=== PATIENT | male | born 1990 | race Two or more races ===

== ENCOUNTER 2018-08-15 17:10 | Inpatient (IN) | payer SELFPAY ==
[~2018-08-15] VITALS: Ht 170.2 cm; Wt 53.6 kg
--- NOTE | 2018-08-15 | NUR ---
PATIENT ARRIVED TO ICU ROOM 106 FROM ED. #2 BAG OF ACETYLCYSTEINE INFUSING VIA WHEELCHAIR. DR. MARES AT BEDSIDE. PATIENT ALERT AND ANSWERS QUESTIONS APPROPRIATELY, DENIES NAUSEA, VOMITING, OR PAIN AT THIS TIME. WILL CONTINUE TO MONITOR.
--- NOTE | 2018-08-15 18:04 | PHYS DOC ---
Adult General Chief Complaint Chief Complaint: SUICDAL IDEATION HPI HPI Patient is a 28 year old AA male who presents to the emergency room with complaints of nausea, vomiting, lower abdominal pain after taking 20 extra strength Tylenol at approximately 2100 last night. Patient states he overdosed on Tylenol in an attempt to cause self harm. Patient states he was feeling suicidal yesterday because of problems with his girlfriend. Patient states his girlfriend planned on kicking him out of their home. Patient states he attempted to harm himself because of the fear of being homeless. Patient states he does not have a job at this time and has no place to go. He denies any homicidal ideations. He reports that he has vomited 6 times today, he denies the presence of any pill fragments in the vomit. He denies any hematemesis, diarrhea, fever, shortness of breath, or wheezing. He reports that [facility] were called to the home last night after he told his girlfriend that he overdosed, but an ambulance was not called because he lied to police and denied taking an overdose to them. (VENTURA HALL APRN) Review of Systems Review of Systems Constitutional: Denies fever or chills [] Eyes: Denies change in visual acuity, redness, or eye pain [] HENT: Denies nasal congestion or sore throat [] Respiratory: Denies cough or shortness of breath [] Cardiovascular: No additional information not addressed in HPI [] GI: See HPI : Denies dysuria or hematuria [] Musculoskeletal: Denies back pain or joint pain [] Integument: Denies rash or skin lesions [] Neurologic: Denies headache, focal weakness or sensory changes [] Psychiatric: Denies homicidal ideations, reports suicidal ideations and attempt , see HPI Complete systems were reviewed and found to be within normal limits, except as documented in this note. (VENTURA HALL APRN) Current Medications Current Medications Current Medications Medications (Trade) Dose Ordered Sig/Sarah Start Time Stop Time Status Last Admin Dose Admin Ondansetron HCl (Zofran) 4 mg 1X ONCE 08/15/18 19:30 08/15/18 19:32 DC 08/15/18 20:43 4 MG (RADHA RODRIGUEZ DO) Allergies Allergies Allergies Coded Allergies Type Severity Reaction Last Updated Verified banana Allergy Severe SWELLING 08/15/18 Yes (RADHA RODRIGUEZ DO) Physical Exam Physical Exam Constitutional: Well developed, well nourished, no acute distress, non-toxic appearance. [] HENT: Normocephalic, atraumatic, bilateral external ears normal, oropharynx moist, no oral exudates, nose normal. [] Eyes: PERRLA, conjunctiva normal, no discharge. [] Neck: Normal range of motion, no stridor. [] Cardiovascular:Heart rate regular rhythm, no murmur [] Lungs & Thorax: Bilateral breath sounds clear to auscultation [] Abdomen: Bowel sounds normal, soft, no tenderness, no masses, no pulsatile masses. [] Skin: Warm, dry, no erythema, no rash. [] Extremities: No cyanosis, no clubbing, ROM intact, no edema. [] Neurologic: Alert and oriented X 3, normal motor function, normal sensory function, no focal deficits noted. [] Psychologic: Affect depressed, judgement normal, mood depressed, poor eye contact. [] (VENTURA HALL APRN) Current Patient Data Vital Signs Vital Signs Date Time Temp Pulse Resp B/P (MAP) Pulse Ox O2 Delivery O2 Flow Rate FiO2 08/15/18 18:55 16 108/54 (72) 99 Room Air 08/15/18 17:30 97.8 65 97.8 (RADHA RODRIGUEZ DO) Lab Values Laboratory Tests Test 08/15/18 18:40 08/15/18 19:25 08/15/18 19:29 White Blood Count 8.0 x10^3/uL (4.0-11.0) Red Blood Count 5.00 x10^6/uL (4.30-5.70) Hemoglobin 15.0 g/dL (13.0-17.5) Hematocrit 44.6 % (39.0-53.0) Mean Corpuscular Volume 89 fL (79-100) Mean Corpuscular Hemoglobin 30 pg (25-35) Mean Corpuscular Hemoglobin Concent 34 g/dL (31-37) Red Cell Distribution Width 13.1 % (11.5-14.5) Platelet Count 242 x10^3/uL (140-400) Neutrophils (%) (Auto) 84 % (31-73) H Lymphocytes (%) (Auto) 12 % (24-48) L Monocytes (%) (Auto) 3 % (0-9) Eosinophils (%) (Auto) 0 % (0-3) Basophils (%) (Auto) 1 % (0-3) Neutrophils # (Auto) 6.7 x10^3uL (1.8-7.7) Lymphocytes # (Auto) 1.0 x10^3/uL (1.0-4.8) Monocytes # (Auto) 0.3 x10^3/uL (0.0-1.1) Eosinophils # (Auto) 0.0 x10^3/uL (0.0-0.7) Basophils # (Auto) 0.0 x10^3/uL (0.0-0.2) Sodium Level 142 mmol/L (136-145) Potassium Level 4.2 mmol/L (3.5-5.1) Chloride Level 105 mmol/L (98-107) Carbon Dioxide Level 28 mmol/L (21-32) Anion Gap 9 (6-14) Blood Urea Nitrogen 16 mg/dL (8-26) Creatinine 1.1 mg/dL (0.7-1.3) Estimated GFR (Cockcroft-Gault) 78.6 Glucose Level 104 mg/dL (70-99) H Calcium Level 9.4 mg/dL (8.5-10.1) Total Bilirubin 0.8 mg/dL (0.2-1.0) Direct Bilirubin 0.2 mg/dL (0.0-0.2) Aspartate Amino Transferase (AST) 12 U/L (15-37) L Alanine Aminotransferase (ALT) 15 U/L (16-63) L Alkaline Phosphatase 44 U/L (46-116) L Total Protein 8.1 g/dL (6.4-8.2) Albumin 4.5 g/dL (3.4-5.0) Salicylates Level < 2.8 mg/dL (2.8-20.0) L Salicylate Last Dose Date Salicylate Last Dose Time Acetaminophen Level 13.8 mcg/ml (10-30) Acetaminophen Last Dose Date Acetaminophen Last Dose Time Ethyl Alcohol Level < 10 mg/dL (0-10) Prothrombin Time 14.7 SEC (11.7-14.0) H Prothrombin Time INR 1.2 (0.8-1.1) H PTT 26 SEC (24-38) Laboratory Tests 08/15/18 18:40 Laboratory Tests 08/15/18 19:25 (RADHA RODRIGUEZ DO) Lab Values Laboratory Tests Test 08/15/18 18:40 08/15/18 19:25 08/15/18 19:29 White Blood Count 8.0 x10^3/uL (4.0-11.0) Red Blood Count 5.00 x10^6/uL (4.30-5.70) Hemoglobin 15.0 g/dL (13.0-17.5) Hematocrit 44.6 % (39.0-53.0) Mean Corpuscular Volume 89 fL (79-100) Mean Corpuscular Hemoglobin 30 pg (25-35) Mean Corpuscular Hemoglobin Concent 34 g/dL (31-37) Red Cell Distribution Width 13.1 % (11.5-14.5) Platelet Count 242 x10^3/uL (140-400) Neutrophils (%) (Auto) 84 % (31-73) H Lymphocytes (%) (Auto) 12 % (24-48) L Monocytes (%) (Auto) 3 % (0-9) Eosinophils (%) (Auto) 0 % (0-3) Basophils (%) (Auto) 1 % (0-3) Neutrophils # (Auto) 6.7 x10^3uL (1.8-7.7) Lymphocytes # (Auto) 1.0 x10^3/uL (1.0-4.8) Monocytes # (Auto) 0.3 x10^3/uL (0.0-1.1) Eosinophils # (Auto) 0.0 x10^3/uL (0.0-0.7) Basophils # (Auto) 0.0 x10^3/uL (0.0-0.2) Sodium Level 142 mmol/L (136-145) Potassium Level 4.2 mmol/L (3.5-5.1) Chloride Level 105 mmol/L (98-107) Carbon Dioxide Level 28 mmol/L (21-32) Anion Gap 9 (6-14) Blood Urea Nitrogen 16 mg/dL (8-26) Creatinine 1.1 mg/dL (0.7-1.3) Estimated GFR (Cockcroft-Gault) 78.6 Glucose Level 104 mg/dL (70-99) H Calcium Level 9.4 mg/dL (8.5-10.1) Total Bilirubin 0.8 mg/dL (0.2-1.0) Direct Bilirubin 0.2 mg/dL (0.0-0.2) Aspartate Amino Transferase (AST) 12 U/L (15-37) L Alanine Aminotransferase (ALT) 15 U/L (16-63) L Alkaline Phosphatase 44 U/L (46-116) L Total Protein 8.1 g/dL (6.4-8.2) Albumin 4.5 g/dL (3.4-5.0) Salicylates Level < 2.8 mg/dL (2.8-20.0) L Salicylate Last Dose Date Salicylate Last Dose Time Acetaminophen Level 13.8 mcg/ml (10-30) Acetaminophen Last Dose Date Acetaminophen Last Dose Time Ethyl Alcohol Level < 10 mg/dL (0-10) Prothrombin Time 14.7 SEC (11.7-14.0) H Prothrombin Time INR 1.2 (0.8-1.1) H PTT 26 SEC (24-38) Laboratory Tests 08/15/18 18:40 Laboratory Tests 08/15/18 19:25 (VENTURA HALL APRN) EKG EKG [] (VENTURA HALL APRN) Radiology/Procedures Radiology/Procedures [] (VENTURA HALL APRN) Course & Med Decision Making Course & Med Decision Making Pertinent Labs and Imaging studies reviewed. (See chart for details) Dx: intentional tylenol overdose, suicide attempt 1828- spoke with Kathe with PAT team, she will come evaluate patient. 1915- Called poison control, Spoke with Hina Munson who reports that by this time patient's tylenol level would be down to zero. If liver enzymes are not elevated pt will not need treatment. By patient's weight this would not be a toxic level. A toxic tylenol level would be 8 or above and would need treatment. 2013- Spoke with Hina Munson at poison control who states that patient will need to be treated as the tylenol level is at a toxic level. Pt needs mucomyst and if the protocol is started before 9 the tylenol level and liver enzymes would need to be checked at 0700, if tylenol is down to 0 and the liver enzymes remain the same then treatment can be stopped, otherwise the protocol will need to be continued. INR needs to be less than 2.0 2027- Spoke with Dr. Painting and advised of patient. Will admit for intentional tylenol overdose and suicide attempt to ICU. Advised Dr. Painting that Mucomyst has been ordered. [] (VENTURA HALL APRN) Dragon Disclaimer Dragon Disclaimer This electronic medical record was generated, in whole or in part, using a voice recognition dictation system. (VENTURA HALL APRN) Departure Departure Impression: Primary Impression: Tylenol overdose Additional Impression: Suicide attempt by acetaminophen overdose Disposition: ADMITTED INPATIENT Admitting Physician: Other (SUZAN) (VENTURA HALL APRN) Referrals: NO PCP (PCP) Attending Signature Attending Signature I have reviewed the PA/INSURANCE ADMINISTRATIVE ASSISTANT's note and plan of care. I was available for consultation as needed during the patient's visit in the emergency department. I agree with the clinical impression, plan, and disposition. (RADHA RODRIGUEZ DO) Problem Qualifiers Primary Impression: Tylenol overdose Encounter type: initial encounter Injury intent: intentional self-harm Qualified Codes: T39.1X2A - Poisoning by 4-aminophenol derivatives, intentional self-harm, initial encounter Additional Impression: Suicide attempt by acetaminophen overdose Encounter type: initial encounter Qualified Codes: T39.1X2A - Poisoning by 4 -aminophenol derivatives, intentional self-harm, initial encounter VENTURA HALL APRN Aug 15, 2018 18:04 RADHA RODRIGUEZ DO Aug 20, 2018 17:10
[2018-08-15 18:58] LABS: BASO % 1 % (0-3); EOS % 0 % (0-3); HEMATOCRIT 44.6 % (39.0-53.0); LYMPH % 12 % (24-48); MEAN CORPUSCULAR HEMOGLOBIN 30 pg (25-35); MEAN CORPUSCULAR HGB CONC 34 g/dL (31-37); MEAN CORPUSCULAR VOLUME 89 fL (79-100); MONO # 0.3 x10^3/uL (0.0-1.1); MONO % 3 % (0-9); NEUT # 6.7 x10^3uL (1.8-7.7); NEUT % 84 % (31-73); PLATELET COUNT 242 x10^3/uL (140-400); RED CELL DISTRIBUTION WIDTH 13.1 % (11.5-14.5)
[2018-08-15] MEDS ORDERED: ONDANSETRON PF 4 MG/2 ML VIAL. IV ONE ×2 (19:30→22:00)
[2018-08-15 19:47] LABS: CALCIUM 9.4 mg/dL (8.5-10.1); CREATININE 1.1 mg/dL (0.7-1.3); GFR 78.6; POTASSIUM 4.2 mmol/L (3.5-5.1)
[2018-08-15 19:48] LABS: PROTHROMBIN TIME PATIENT 14.7 SEC (11.7-14.0)
[2018-08-15 19:50] LABS: ETHANOL < 10 mg/dL (0-10); SALIC < 2.8 mg/dL (2.8-20.0)
[2018-08-15 19:52] LABS: ACETAMIN 13.8 mcg/ml (10-30)
[2018-08-15 19:54] LABS: ALBUMIN 4.5 g/dL (3.4-5.0); DIRECT BILIRUBIN 0.2 mg/dL (0.0-0.2); TOTAL BILIRUBIN 0.8 mg/dL (0.2-1.0); TOTAL PROTEIN 8.1 g/dL (6.4-8.2)
--- NOTE | 2018-08-15 20:37 | PDOC1 ---
History and Physical Date of Admission Date of Admission DATE: 08/15/18 TIME: 20:36 Identification/Chief Complaint Chief Complaint Tylenol overdose Source Source: Patient History of Present Illness History of Present Illness Mr Brewer is a 28 yo AAM without significant PMHx p/w nausea, vomiting, lower abdominal pain after taking 20 extra strength Tylenol at approximately 2100 last night 08/14/18. He overdosed on Tylenol in an attempt to cause self harm after a verbal altercation with his girlfriend who planned on kicking him out of their home. He denies any homicidal ideations. He expresses regret, felt like he had no other options as he was facing homelessness as well as unemployment. Vomited 6 times today, did not vomit after initial ingestion. He denies any hematemesis, diarrhea, fever, shortness of breath, or wheezing. He denies any abdominal pain. He reports that [facility] were called to the home last night after he told his girlfriend that he overdosed, but an ambulance was not called because he tell me that he lied to police and denied taking an overdose to them. Transaminases were not elevated. INR was 1.2, however. His acetaminophen level was 13.8ug/mL at 2125 in our ED consistent with what I calculate to be nearly a level of 400ug/mL at the 4 hour fernando, therefore, with consultation with poison control was initiated on n-acetylcysteine protocol. ED spoke with Hina Munson at poison control who states that patient will need to be treated as the tylenol level is at a toxic level. Pt needs mucomyst and if the protocol is started before 9 the tylenol level and liver enzymes would need to be checked at 0700, if tylenol is down to 0 and the liver enzymes remain the same then treatment can be stopped, otherwise the protocol will need to be continued. INR needs to be less than 2.0 Past Medical History Cardiovascular: No pertinent hx Pulmonary: No pertinent hx GI: No pertinent hx Heme/Onc: No pertinent hx Hepatobiliary: No pertinent hx Psych: No pertinent hx Rheumatologic: No pertinent hx Infectious disease: No pertinent hx ENT: No pertinent hx Renal/: No pertinent hx Endocrine: No pertinent hx Dermatology: No pertinent hx Current Medications Current Medications Current Medications Ondansetron HCl (Zofran) 4 mg 1X ONCE IV ; Start 08/15/18 at 19:30; Stop at 19:32; Status DC Acetylcysteine 9.53 gm/Dextrose 247.65 ml @ 200 mls/ hr 1X ONCE IV ; Start at 21:00; Stop 08/15/18 at 22:14 Acetylcysteine 3.18 gm/Dextrose 515.9 ml @ 125 mls/hr 1X ONCE IV ; Start 08/15 at 22:00; Stop 08/16/18 at 02:07 Acetylcysteine 6.35 gm/Dextrose 1,031.75 ml @ 62.5 mls/ hr 1X ONCE IV ; Start 08/16/18 at 02:00; Stop 08/16/18 at 18:30 Sodium Chloride 1,000 ml @ 1,000 mls/hr 1X ONCE IV ; Start 08/15/18 at 20:45; Stop 08/15/18 at 21:44 Allergies Allergies: Coded Allergies: banana (Verified Allergy, Severe, SWELLING, 08/15/18) Physical Exam General: Alert, Oriented X3, Cooperative, No acute distress HEENT: Atraumatic, PERRLA, EOMI, Mucous membr. moist/pink Lungs: Clear to auscultation, Normal air movement Heart: S1S2, RRR, no gallops, no murmurs Abdomen: Normal bowel sounds, Soft, No tenderness, No hepatosplenomegaly, No masses Extremities: No clubbing, No cyanosis, No edema, Normal pulses, No tenderness/ swelling Skin: No rashes, No breakdown, No significant lesion Neuro: Normal gait, Normal speech, Strength at 5/5 X4 ext, Normal tone, Sensation intact, Cranial nerves 3-12 NL, Reflexes 2+ Psych/Mental Status: Mental status NL, Mood NL Vitals Vitals Vital Signs Date Time Temp Pulse Resp B/P (MAP) Pulse Ox O2 Delivery O2 Flow Rate FiO2 08/15/18 18:55 16 108/54 (72) 99 Room Air 08/15/18 17:30 97.8 65 97.8 Labs Labs Laboratory Tests Test 08/15/18 18:40 08/15/18 19:25 08/15/18 19:29 White Blood Count 8.0 x10^3/uL (4.0-11.0) Red Blood Count 5.00 x10^6/uL (4.30-5.70) Hemoglobin 15.0 g/dL (13.0-17.5) Hematocrit 44.6 % (39.0-53.0) Mean Corpuscular Volume 89 fL (79-100) Mean Corpuscular Hemoglobin 30 pg (25-35) Mean Corpuscular Hemoglobin Concent 34 g/dL (31-37) Red Cell Distribution Width 13.1 % (11.5-14.5) Platelet Count 242 x10^3/uL (140-400) Neutrophils (%) (Auto) 84 % (31-73) Lymphocytes (%) (Auto) 12 % (24-48) Monocytes (%) (Auto) 3 % (0-9) Eosinophils (%) (Auto) 0 % (0-3) Basophils (%) (Auto) 1 % (0-3) Neutrophils # (Auto) 6.7 x10^3uL (1.8-7.7) Lymphocytes # (Auto) 1.0 x10^3/uL (1.0-4.8) Monocytes # (Auto) 0.3 x10^3/uL (0.0-1.1) Eosinophils # (Auto) 0.0 x10^3/uL (0.0-0.7) Basophils # (Auto) 0.0 x10^3/uL (0.0-0.2) Sodium Level 142 mmol/L (136-145) Potassium Level 4.2 mmol/L (3.5-5.1) Chloride Level 105 mmol/L (98-107) Carbon Dioxide Level 28 mmol/L (21-32) Anion Gap 9 (6-14) Blood Urea Nitrogen 16 mg/dL (8-26) Creatinine 1.1 mg/dL (0.7-1.3) Estimated GFR (Cockcroft-Gault) 78.6 Glucose Level 104 mg/dL (70-99) Calcium Level 9.4 mg/dL (8.5-10.1) Total Bilirubin 0.8 mg/dL (0.2-1.0) Direct Bilirubin 0.2 mg/dL (0.0-0.2) Aspartate Amino Transf (AST/SGOT) 12 U/L (15-37) Alanine Aminotransferase (ALT/SGPT) 15 U/L (16-63) Alkaline Phosphatase 44 U/L (46-116) Total Protein 8.1 g/dL (6.4-8.2) Albumin 4.5 g/dL (3.4-5.0) Salicylates Level < 2.8 mg/dL (2.8-20.0) Salicylate Last Dose Date Salicylate Last Dose Time Acetaminophen Level 13.8 mcg/ml (10-30) Acetaminophen Last Dose Date Acetaminophen Last Dose Time Ethyl Alcohol Level < 10 mg/dL (0-10) Prothrombin Time 14.7 SEC (11.7-14.0) Prothromb Time International Ratio 1.2 (0.8-1.1) Activated Partial Thromboplast Time 26 SEC (24-38) Laboratory Tests Test 08/15/18 18:40 08/15/18 19:25 08/15/18 19:29 White Blood Count 8.0 x10^3/uL (4.0-11.0) Red Blood Count 5.00 x10^6/uL (4.30-5.70) Hemoglobin 15.0 g/dL (13.0-17.5) Hematocrit 44.6 % (39.0-53.0) Mean Corpuscular Volume 89 fL (79-100) Mean Corpuscular Hemoglobin 30 pg (25-35) Mean Corpuscular Hemoglobin Concent 34 g/dL (31-37) Red Cell Distribution Width 13.1 % (11.5-14.5) Platelet Count 242 x10^3/uL (140-400) Neutrophils (%) (Auto) 84 % (31-73) Lymphocytes (%) (Auto) 12 % (24-48) Monocytes (%) (Auto) 3 % (0-9) Eosinophils (%) (Auto) 0 % (0-3) Basophils (%) (Auto) 1 % (0-3) Neutrophils # (Auto) 6.7 x10^3uL (1.8-7.7) Lymphocytes # (Auto) 1.0 x10^3/uL (1.0-4.8) Monocytes # (Auto) 0.3 x10^3/uL (0.0-1.1) Eosinophils # (Auto) 0.0 x10^3/uL (0.0-0.7) Basophils # (Auto) 0.0 x10^3/uL (0.0-0.2) Sodium Level 142 mmol/L (136-145) Potassium Level 4.2 mmol/L (3.5-5.1) Chloride Level 105 mmol/L (98-107) Carbon Dioxide Level 28 mmol/L (21-32) Anion Gap 9 (6-14) Blood Urea Nitrogen 16 mg/dL (8-26) Creatinine 1.1 mg/dL (0.7-1.3) Estimated GFR (Cockcroft-Gault) 78.6 Glucose Level 104 mg/dL (70-99) Calcium Level 9.4 mg/dL (8.5-10.1) Total Bilirubin 0.8 mg/dL (0.2-1.0) Direct Bilirubin 0.2 mg/dL (0.0-0.2) Aspartate Amino Transf (AST/SGOT) 12 U/L (15-37) Alanine Aminotransferase (ALT/SGPT) 15 U/L (16-63) Alkaline Phosphatase 44 U/L (46-116) Total Protein 8.1 g/dL (6.4-8.2) Albumin 4.5 g/dL (3.4-5.0) Salicylates Level < 2.8 mg/dL (2.8-20.0) Salicylate Last Dose Date Salicylate Last Dose Time Acetaminophen Level 13.8 mcg/ml (10-30) Acetaminophen Last Dose Date Acetaminophen Last Dose Time Ethyl Alcohol Level < 10 mg/dL (0-10) Prothrombin Time 14.7 SEC (11.7-14.0) Prothromb Time International Ratio 1.2 (0.8-1.1) Activated Partial Thromboplast Time 26 SEC (24-38) VTE Prophylaxis Ordered VTE Prophylaxis Devices: Yes VTE Pharmacological Prophylaxi: No Assessment/Plan Assessment/Plan A/P: Suicide attempt - tylenol overdose. will keep him with 1-1 sitter. ICU admission. PAT team informed of admission Tylenol toxicity - by my calculations with Transaminases were not elevated, INR was 1.2 with acetaminophen level was 13.8ug/mL at 2125 in our ED this is consistent with a level of ~400ug/mL at the 4 hour fernando, therefore, with consultation with poison control was initiated on n-acetylcysteine protocol as his INR was less than 2. Can stop treatment in AM if his tylenol level is 0, he was placed on the 24 hour protocol. 62.5mL/hr will be happening shortly, has already received his first 2 treatments at time of writing of his H&P FEN - General diet PPX - ambulatory/SCDs FULL CODE Inpatient for suicide attempt by tylenol OD on NAC protocol. ICU for overnight, will need LFTs in AM and at least 24-48 hours inpatient. Given his late presentation he is at risk of fulminant liver failure, thankfully he did not yet have transaminase elevation or INR elevation greater than 2. Needs psych consultation. DIONY MARES MD Aug 15, 2018 20:37
[2018-08-15] MEDS ORDERED: IV NORMAL SALINE 1000ML BAG 1,000 ML IV ONE (20:45)
[2018-08-15] MEDS ORDERED: DEXTROSE 5% IV ONE ×2 (21:00→22:00)
[2018-08-15] MEDS ORDERED: ACETYLCYSTEINE IV ONE ×2 (21:00→22:00)
[2018-08-15] MEDS ORDERED: diphenhydrAMINE 50 MG/ML VIAL IVP ONE (22:30)
[2018-08-15] MEDS ORDERED: FAMOTIDINE 20 MG/2 ML VIAL IVP ONE (22:30)
[2018-08-15] MEDS ORDERED: KETOROLAC 15 MG/ML VIAL. IV ONE (22:30)
[2018-08-15 23:30] VITALS: BP 121/69
[2018-08-15 23:45] VITALS: BP 136/72
[2018-08-16] VITALS (17 sets, daily range): BP systolic 96–132; BP diastolic 41–75
[2018-08-16] MEDS ORDERED: DEXTROSE 5% IV ONE (02:00)
[2018-08-16] MEDS ORDERED: ACETYLCYSTEINE IV ONE (02:00)
[2018-08-16 04:22] LABS: BILIRUBIN,URINE NEGATIVE (NEG); CLARITY,URINE CLEAR; COLOR,URINE YELLOW; NITRITE,URINE NEGATIVE (NEG); PROTEIN,URINE NEGATIVE (NEG-TRACE); UROBILINOGEN,URINE 0.2 mg/dL (0.2 mg/dL)
[2018-08-16 04:29] LABS: BARBITURATES NEG (NEG); BENZODIAZEPINES NEG (NEG); CANNABINOIDS NEG (NEG); COCAINE NEG (NEG); METHADONE NEG (NEG); OPIATES NEG (NEG); PHENCYCLIDINE NEG (NEG)
[2018-08-16 04:30] LABS: BACTERIA,URINE 0 /HPF (0-FEW); SQUAMOUS EPITHELIAL CELL,UR OCC /LPF; WBC,URINE OCC /HPF (0-4)
[2018-08-16 04:33] LABS: AMPHETAMINE/METHAMPHETAMINE NEG (NEG)
[2018-08-16 04:44] LABS: ALBUMIN 3.2 g/dL (3.4-5.0); CREATININE 1.3 mg/dL (0.7-1.3); GFR 64.8; POTASSIUM 3.7 mmol/L (3.5-5.1); TOTAL BILIRUBIN 0.7 mg/dL (0.2-1.0); TOTAL PROTEIN 6.4 g/dL (6.4-8.2)
[2018-08-16 04:49] LABS: ACETAMIN 3.5 mcg/ml (10-30)
[2018-08-16 05:01] LABS: PROTHROMBIN TIME PATIENT 16.6 SEC (11.7-14.0)
--- NOTE | 2018-08-16 15:19 | PDOC ---
PROGRESS NOTES Chief Complaint Chief Complaint Suicide attempt - tylenol overdose. will keep him with 1-1 sitter. ICU admission. PAT team informed of admission Tylenol toxicity - receiving NAC protocol Plan: Regular diet PPX - ambulatory/SCDs FULL CODE Inpatient for suicide attempt by tylenol OD on NAC protocol. reeval at least 24- 48 hours inpatient. Given his late presentation he is at risk of fulminant liver failure, thankfully he did not yet have transaminase elevation or INR elevation greater than 2. psych consultation appreciated History of Present Illness History of Present Illness Patient feeling better today compared to yesterday no abdominal pain. Awaiting an evaluation by mental health plan of care explained detail no concerns voiced by the patient Vitals Vitals Vital Signs Date Time Temp Pulse Resp B/P (MAP) Pulse Ox O2 Delivery O2 Flow Rate FiO2 08/16/18 12:00 98.1 61 111/45 (67) 100 Room Air 98.1 08/16/18 09:00 16 Physical Exam General: Alert, Oriented X3, Cooperative, No acute distress Abdomen: Normal bowel sounds, Soft, No tenderness, No hepatosplenomegaly, No masses Extremities: No clubbing, No cyanosis, No edema, Normal pulses, No tenderness/ swelling Skin: No rashes, No breakdown, No significant lesion Labs LABS Laboratory Tests Test 08/15/18 18:40 08/15/18 19:25 08/15/18 19:29 08/16/18 03:15 White Blood Count 8.0 x10^3/uL (4.0-11.0) Red Blood Count 5.00 x10^6/uL (4.30-5.70) Hemoglobin 15.0 g/dL (13.0-17.5) Hematocrit 44.6 % (39.0-53.0) Mean Corpuscular Volume 89 fL (79-100) Mean Corpuscular Hemoglobin 30 pg (25-35) Mean Corpuscular Hemoglobin Concent 34 g/dL (31-37) Red Cell Distribution Width 13.1 % (11.5-14.5) Platelet Count 242 x10^3/uL (140-400) Neutrophils (%) (Auto) 84 % (31-73) Lymphocytes (%) (Auto) 12 % (24-48) Monocytes (%) (Auto) 3 % (0-9) Eosinophils (%) (Auto) 0 % (0-3) Basophils (%) (Auto) 1 % (0-3) Neutrophils # (Auto) 6.7 x10^3uL (1.8-7.7) Lymphocytes # (Auto) 1.0 x10^3/uL (1.0-4.8) Monocytes # (Auto) 0.3 x10^3/uL (0.0-1.1) Eosinophils # (Auto) 0.0 x10^3/uL (0.0-0.7) Basophils # (Auto) 0.0 x10^3/uL (0.0-0.2) Sodium Level 142 mmol/L (136-145) Potassium Level 4.2 mmol/L (3.5-5.1) Chloride Level 105 mmol/L (98-107) Carbon Dioxide Level 28 mmol/L (21-32) Anion Gap 9 (6-14) Blood Urea Nitrogen 16 mg/dL (8-26) Creatinine 1.1 mg/dL (0.7-1.3) Estimated GFR (Cockcroft-Gault) 78.6 Glucose Level 104 mg/dL (70-99) Calcium Level 9.4 mg/dL (8.5-10.1) Total Bilirubin 0.8 mg/dL (0.2-1.0) Direct Bilirubin 0.2 mg/dL (0.0-0.2) Aspartate Amino Transf (AST/SGOT) 12 U/L (15-37) Alanine Aminotransferase (ALT/SGPT) 15 U/L (16-63) Alkaline Phosphatase 44 U/L (46-116) Total Protein 8.1 g/dL (6.4-8.2) Albumin 4.5 g/dL (3.4-5.0) Salicylates Level < 2.8 mg/dL (2.8-20.0) Salicylate Last Dose Date Salicylate Last Dose Time Acetaminophen Level 13.8 mcg/ml (10-30) Acetaminophen Last Dose Date Acetaminophen Last Dose Time Ethyl Alcohol Level < 10 mg/dL (0-10) Prothrombin Time 14.7 SEC (11.7-14.0) Prothromb Time International Ratio 1.2 (0.8-1.1) Activated Partial Thromboplast Time 26 SEC (24-38) Urine Collection Type Unknown Urine Color Yellow Urine Clarity Clear Urine pH 6.0 Urine Specific [place] >=1.030 Urine Protein Negative mg/dL (NEG-TRACE) Urine Glucose (UA) Negative mg/dL (NEG) Urine Ketones (Stick) >=80 mg/dL (NEG) Urine Blood Negative (NEG) Urine Nitrite Negative (NEG) Urine Bilirubin Negative (NEG) Urine Urobilinogen Dipstick 0.2 mg/dL (0.2 mg/dL) Urine Leukocyte Esterase Negative (NEG) Urine RBC 1-2 /HPF (0-2) Urine WBC Occ /HPF (0-4) Urine Squamous Epithelial Cells Occ /LPF Urine Bacteria 0 /HPF (0-FEW) Urine Mucus Slight /LPF Urine Opiates Screen Neg (NEG) Urine Methadone Screen Neg (NEG) Urine Barbiturates Neg (NEG) Urine Phencyclidine Screen Neg (NEG) Urine Amphetamine/Methamphetamine Neg (NEG) Urine Benzodiazepines Screen Neg (NEG) Urine Cocaine Screen Neg (NEG) Urine Cannabinoids Screen Neg (NEG) Urine Ethyl Alcohol Neg (NEG) Test 08/16/18 04:00 Prothrombin Time 16.6 SEC (11.7-14.0) Prothromb Time International Ratio 1.4 (0.8-1.1) Sodium Level 143 mmol/L (136-145) Potassium Level 3.7 mmol/L (3.5-5.1) Chloride Level 106 mmol/L (98-107) Carbon Dioxide Level 25 mmol/L (21-32) Anion Gap 12 (6-14) Blood Urea Nitrogen 13 mg/dL (8-26) Creatinine 1.3 mg/dL (0.7-1.3) Estimated GFR (Cockcroft-Gault) 64.8 BUN/Creatinine Ratio 10 (6-20) Glucose Level 89 mg/dL (70-99) Calcium Level 8.0 mg/dL (8.5-10.1) Total Bilirubin 0.7 mg/dL (0.2-1.0) Aspartate Amino Transf (AST/SGOT) 10 U/L (15-37) Alanine Aminotransferase (ALT/SGPT) 12 U/L (16-63) Alkaline Phosphatase 33 U/L (46-116) Total Protein 6.4 g/dL (6.4-8.2) Albumin 3.2 g/dL (3.4-5.0) Albumin/Globulin Ratio 1.0 (1.0-1.7) Acetaminophen Level 3.5 mcg/ml (10-30) Acetaminophen Last Dose Date Acetaminophen Last Dose Time Assessment and Plan Assessmemt and Plan Problems Medical Problems: (1) Suicide attempt by acetaminophen overdose Status: Acute (2) Tylenol overdose Status: Acute Comment Review of Relevant I have reviewed the following items fernando (where applicable) has been applied. Labs Laboratory Tests Test 08/15/18 18:40 08/15/18 19:25 08/15/18 19:29 08/16/18 03:15 White Blood Count 8.0 x10^3/uL (4.0-11.0) Red Blood Count 5.00 x10^6/uL (4.30-5.70) Hemoglobin 15.0 g/dL (13.0-17.5) Hematocrit 44.6 % (39.0-53.0) Mean Corpuscular Volume 89 fL (79-100) Mean Corpuscular Hemoglobin 30 pg (25-35) Mean Corpuscular Hemoglobin Concent 34 g/dL (31-37) Red Cell Distribution Width 13.1 % (11.5-14.5) Platelet Count 242 x10^3/uL (140-400) Neutrophils (%) (Auto) 84 % (31-73) Lymphocytes (%) (Auto) 12 % (24-48) Monocytes (%) (Auto) 3 % (0-9) Eosinophils (%) (Auto) 0 % (0-3) Basophils (%) (Auto) 1 % (0-3) Neutrophils # (Auto) 6.7 x10^3uL (1.8-7.7) Lymphocytes # (Auto) 1.0 x10^3/uL (1.0-4.8) Monocytes # (Auto) 0.3 x10^3/uL (0.0-1.1) Eosinophils # (Auto) 0.0 x10^3/uL (0.0-0.7) Basophils # (Auto) 0.0 x10^3/uL (0.0-0.2) Sodium Level 142 mmol/L (136-145) Potassium Level 4.2 mmol/L (3.5-5.1) Chloride Level 105 mmol/L (98-107) Carbon Dioxide Level 28 mmol/L (21-32) Anion Gap 9 (6-14) Blood Urea Nitrogen 16 mg/dL (8-26) Creatinine 1.1 mg/dL (0.7-1.3) Estimated GFR (Cockcroft-Gault) 78.6 Glucose Level 104 mg/dL (70-99) Calcium Level 9.4 mg/dL (8.5-10.1) Total Bilirubin 0.8 mg/dL (0.2-1.0) Direct Bilirubin 0.2 mg/dL (0.0-0.2) Aspartate Amino Transf (AST/SGOT) 12 U/L (15-37) Alanine Aminotransferase (ALT/SGPT) 15 U/L (16-63) Alkaline Phosphatase 44 U/L (46-116) Total Protein 8.1 g/dL (6.4-8.2) Albumin 4.5 g/dL (3.4-5.0) Salicylates Level < 2.8 mg/dL (2.8-20.0) Salicylate Last Dose Date Salicylate Last Dose Time Acetaminophen Level 13.8 mcg/ml (10-30) Acetaminophen Last Dose Date Acetaminophen Last Dose Time Ethyl Alcohol Level < 10 mg/dL (0-10) Prothrombin Time 14.7 SEC (11.7-14.0) Prothromb Time International Ratio 1.2 (0.8-1.1) Activated Partial Thromboplast Time 26 SEC (24-38) Urine Collection Type Unknown Urine Color Yellow Urine Clarity Clear Urine pH 6.0 Urine Specific [place] >=1.030 Urine Protein Negative mg/dL (NEG-TRACE) Urine Glucose (UA) Negative mg/dL (NEG) Urine Ketones (Stick) >=80 mg/dL (NEG) Urine Blood Negative (NEG) Urine Nitrite Negative (NEG) Urine Bilirubin Negative (NEG) Urine Urobilinogen Dipstick 0.2 mg/dL (0.2 mg/dL) Urine Leukocyte Esterase Negative (NEG) Urine RBC 1-2 /HPF (0-2) Urine WBC Occ /HPF (0-4) Urine Squamous Epithelial Cells Occ /LPF Urine Bacteria 0 /HPF (0-FEW) Urine Mucus Slight /LPF Urine Opiates Screen Neg (NEG) Urine Methadone Screen Neg (NEG) Urine Barbiturates Neg (NEG) Urine Phencyclidine Screen Neg (NEG) Urine Amphetamine/Methamphetamine Neg (NEG) Urine Benzodiazepines Screen Neg (NEG) Urine Cocaine Screen Neg (NEG) Urine Cannabinoids Screen Neg (NEG) Urine Ethyl Alcohol Neg (NEG) Test 08/16/18 04:00 Prothrombin Time 16.6 SEC (11.7-14.0) Prothromb Time International Ratio 1.4 (0.8-1.1) Sodium Level 143 mmol/L (136-145) Potassium Level 3.7 mmol/L (3.5-5.1) Chloride Level 106 mmol/L (98-107) Carbon Dioxide Level 25 mmol/L (21-32) Anion Gap 12 (6-14) Blood Urea Nitrogen 13 mg/dL (8-26) Creatinine 1.3 mg/dL (0.7-1.3) Estimated GFR (Cockcroft-Gault) 64.8 BUN/Creatinine Ratio 10 (6-20) Glucose Level 89 mg/dL (70-99) Calcium Level 8.0 mg/dL (8.5-10.1) Total Bilirubin 0.7 mg/dL (0.2-1.0) Aspartate Amino Transf (AST/SGOT) 10 U/L (15-37) Alanine Aminotransferase (ALT/SGPT) 12 U/L (16-63) Alkaline Phosphatase 33 U/L (46-116) Total Protein 6.4 g/dL (6.4-8.2) Albumin 3.2 g/dL (3.4-5.0) Albumin/Globulin Ratio 1.0 (1.0-1.7) Acetaminophen Level 3.5 mcg/ml (10-30) Acetaminophen Last Dose Date Acetaminophen Last Dose Time Laboratory Tests Test 08/15/18 18:40 08/15/18 19:25 08/15/18 19:29 08/16/18 03:15 White Blood Count 8.0 x10^3/uL (4.0-11.0) Red Blood Count 5.00 x10^6/uL (4.30-5.70) Hemoglobin 15.0 g/dL (13.0-17.5) Hematocrit 44.6 % (39.0-53.0) Mean Corpuscular Volume 89 fL (79-100) Mean Corpuscular Hemoglobin 30 pg (25-35) Mean Corpuscular Hemoglobin Concent 34 g/dL (31-37) Red Cell Distribution Width 13.1 % (11.5-14.5) Platelet Count 242 x10^3/uL (140-400) Neutrophils (%) (Auto) 84 % (31-73) Lymphocytes (%) (Auto) 12 % (24-48) Monocytes (%) (Auto) 3 % (0-9) Eosinophils (%) (Auto) 0 % (0-3) Basophils (%) (Auto) 1 % (0-3) Neutrophils # (Auto) 6.7 x10^3uL (1.8-7.7) Lymphocytes # (Auto) 1.0 x10^3/uL (1.0-4.8) Monocytes # (Auto) 0.3 x10^3/uL (0.0-1.1) Eosinophils # (Auto) 0.0 x10^3/uL (0.0-0.7) Basophils # (Auto) 0.0 x10^3/uL (0.0-0.2) Sodium Level 142 mmol/L (136-145) Potassium Level 4.2 mmol/L (3.5-5.1) Chloride Level 105 mmol/L (98-107) Carbon Dioxide Level 28 mmol/L (21-32) Anion Gap 9 (6-14) Blood Urea Nitrogen 16 mg/dL (8-26) Creatinine 1.1 mg/dL (0.7-1.3) Estimated GFR (Cockcroft-Gault) 78.6 Glucose Level 104 mg/dL (70-99) Calcium Level 9.4 mg/dL (8.5-10.1) Total Bilirubin 0.8 mg/dL (0.2-1.0) Direct Bilirubin 0.2 mg/dL (0.0-0.2) Aspartate Amino Transf (AST/SGOT) 12 U/L (15-37) Alanine Aminotransferase (ALT/SGPT) 15 U/L (16-63) Alkaline Phosphatase 44 U/L (46-116) Total Protein 8.1 g/dL (6.4-8.2) Albumin 4.5 g/dL (3.4-5.0) Salicylates Level < 2.8 mg/dL (2.8-20.0) Salicylate Last Dose Date Salicylate Last Dose Time Acetaminophen Level 13.8 mcg/ml (10-30) Acetaminophen Last Dose Date Acetaminophen Last Dose Time Ethyl Alcohol Level < 10 mg/dL (0-10) Prothrombin Time 14.7 SEC (11.7-14.0) Prothromb Time International Ratio 1.2 (0.8-1.1) Activated Partial Thromboplast Time 26 SEC (24-38) Urine Collection Type Unknown Urine Color Yellow Urine Clarity Clear Urine pH 6.0 Urine Specific [place] >=1.030 Urine Protein Negative mg/dL (NEG-TRACE) Urine Glucose (UA) Negative mg/dL (NEG) Urine Ketones (Stick) >=80 mg/dL (NEG) Urine Blood Negative (NEG) Urine Nitrite Negative (NEG) Urine Bilirubin Negative (NEG) Urine Urobilinogen Dipstick 0.2 mg/dL (0.2 mg/dL) Urine Leukocyte Esterase Negative (NEG) Urine RBC 1-2 /HPF (0-2) Urine WBC Occ /HPF (0-4) Urine Squamous Epithelial Cells Occ /LPF Urine Bacteria 0 /HPF (0-FEW) Urine Mucus Slight /LPF Urine Opiates Screen Neg (NEG) Urine Methadone Screen Neg (NEG) Urine Barbiturates Neg (NEG) Urine Phencyclidine Screen Neg (NEG) Urine Amphetamine/Methamphetamine Neg (NEG) Urine Benzodiazepines Screen Neg (NEG) Urine Cocaine Screen Neg (NEG) Urine Cannabinoids Screen Neg (NEG) Urine Ethyl Alcohol Neg (NEG) Test 08/16/18 04:00 Prothrombin Time 16.6 SEC (11.7-14.0) Prothromb Time International Ratio 1.4 (0.8-1.1) Sodium Level 143 mmol/L (136-145) Potassium Level 3.7 mmol/L (3.5-5.1) Chloride Level 106 mmol/L (98-107) Carbon Dioxide Level 25 mmol/L (21-32) Anion Gap 12 (6-14) Blood Urea Nitrogen 13 mg/dL (8-26) Creatinine 1.3 mg/dL (0.7-1.3) Estimated GFR (Cockcroft-Gault) 64.8 BUN/Creatinine Ratio 10 (6-20) Glucose Level 89 mg/dL (70-99) Calcium Level 8.0 mg/dL (8.5-10.1) Total Bilirubin 0.7 mg/dL (0.2-1.0) Aspartate Amino Transf (AST/SGOT) 10 U/L (15-37) Alanine Aminotransferase (ALT/SGPT) 12 U/L (16-63) Alkaline Phosphatase 33 U/L (46-116) Total Protein 6.4 g/dL (6.4-8.2) Albumin 3.2 g/dL (3.4-5.0) Albumin/Globulin Ratio 1.0 (1.0-1.7) Acetaminophen Level 3.5 mcg/ml (10-30) Acetaminophen Last Dose Date Acetaminophen Last Dose Time Medications Current Medications Ondansetron HCl (Zofran) 4 mg 1X ONCE IV Last administered on 08/15/18at 20:43 ; Start 08/15/18 at 19:30; Stop 08/15/18 at 19:32; Status DC Acetylcysteine 9.53 gm/Dextrose 247.65 ml @ 200 mls/ hr 1X ONCE IV Last administered on 08/15/18at 20:50; Start 08/15/18 at 21:00; Stop 08/15/18 at 22:14 ; Status DC Acetylcysteine 3.18 gm/Dextrose 515.9 ml @ 125 mls/hr 1X ONCE IV Last administered on 08/15/18at 22:41; Start 08/15/18 at 22:00; Stop 08/16/18 at 02:07 ; Status DC Acetylcysteine 6.35 gm/Dextrose 1,031.75 ml @ 62.5 mls/ hr 1X ONCE IV Last administered on 08/16/18at 03:39; Start 08/16/18 at 02:00; Stop 08/16/18 at 18:30 Sodium Chloride 1,000 ml @ 1,000 mls/hr 1X ONCE IV Last administered on at 20:47; Start 08/15/18 at 20:45; Stop 08/15/18 at 21:44; Status DC Ondansetron HCl (Zofran) 4 mg 1X ONCE IV Last administered on 08/15/18at 22:12 ; Start 08/15/18 at 22:00; Stop 08/15/18 at 22:01; Status DC Diphenhydramine HCl (Benadryl) 50 mg 1X ONCE IVP Last administered on at 22:31; Start 08/15/18 at 22:30; Stop 08/15/18 at 22:31; Status DC Famotidine (Pepcid Vial) 20 mg 1X ONCE IVP Last administered on 08/15/18at 22: 35; Start 08/15/18 at 22:30; Stop 08/15/18 at 22:31; Status DC Ketorolac Tromethamine (Toradol 15mg Vial) 15 mg 1X ONCE IV Last administered on 08/15/18at 22:36; Start 08/15/18 at 22:30; Stop 08/15/18 at 22:31; Status DC Active Scripts Active Reported No Known Medications Prior To Admisstion (Info) Each 1 Each MC 1X Vitals/I & O Vital Sign - Last 24 Hours 08/15/18 08/15/18 08/15/18 08/15/18 17:30 18:55 22:43 23:20 Temp 97.8 97.8 Pulse 65 80 72 Resp 13 16 16 18 B/P (MAP) 115/60 (78) 108/54 (72) 130/68 (88) 122/69 (86) Pulse Ox 99 99 98 100 O2 Delivery Room Air Room Air Room Air 08/15/18 08/15/18 08/16/18 08/16/18 23:30 23:45 00:00 00:15 Temp 97.5 97.5 Pulse 69 72 75 73 Resp 12 12 12 12 B/P (MAP) 121/69 (86) 136/72 (93) 132/75 (94) 123/73 (90) Pulse Ox 100 100 100 100 O2 Delivery Room Air Room Air Room Air Room Air 08/16/18 08/16/18 08/16/18 08/16/18 00:30 00:43 01:00 02:00 Pulse 68 75 76 Resp 10 10 10 B/P (MAP) 121/68 (85) 122/55 (77) 120/56 (77) Pulse Ox 100 98 98 O2 Delivery Room Air Room Air Room Air Room Air 08/16/18 08/16/18 08/16/18 08/16/18 03:00 04:00 04:00 05:00 Pulse 74 62 95 Resp 10 10 10 B/P (MAP) 113/53 (73) 118/63 (81) 96/41 (59) Pulse Ox 98 98 100 O2 Delivery Room Air Room Air Room Air Room Air 08/16/18 08/16/18 08/16/18 08/16/18 06:00 07:00 07:51 08:00 Temp 98.0 98.0 Pulse 75 78 68 Resp 10 12 B/P (MAP) 111/50 (70) 112/60 (77) 111/56 (74) Pulse Ox 100 100 100 O2 Delivery Room Air Room Air Room Air Room Air 08/16/18 08/16/18 08/16/18 09:00 10:02 12:00 Temp 98.0 98.1 98.0 98.1 Pulse 85 85 61 Resp 16 B/P (MAP) 105/49 (67) 105/49 (67) 111/45 (67) Pulse Ox 100 100 100 O2 Delivery Room Air Room Air Room Air Intake and Output 08/15/18 08/15/18 08/16/18 14:59 22:59 06:59 Intake Total 1247.65 ml 500 ml Output Total 200 ml Balance 1247.65 ml 300 ml KATJA AMADOR MD Aug 16, 2018 15:19
--- NOTE | 2018-08-16 15:35 | NUR ---
SS following for discharge planning. SS received phone contact from Cornell at the PAT team stating that he met with pt and assessed. He reported that pt denied suicidal ideation and reported that he had not drank in three months. He reported that pt was anxious about his current relationship. He reported that pt is currently on probation and his girlfriend has kicked him out of the house and has a restraining order against him. He reported that pt is now homeless unless he finds a friend to stay with. Cornell reported that pt did not meet qualifications for inpatient psych at this time and reported that he provided pt with resources for counseling services at some free clinics and provided pt with a list of homeless shelters. SS will continue to follow for discharge needs and will provide assistance with homeless residential if needed.
[2018-08-16 15:42] LABS: ALBUMIN 2.9 g/dL (3.4-5.0); DIRECT BILIRUBIN 0.1 mg/dL (0.0-0.2); TOTAL BILIRUBIN 0.3 mg/dL (0.2-1.0); TOTAL PROTEIN 5.9 g/dL (6.4-8.2)
[2018-08-16 15:44] LABS: ACETAMIN 3.3 mcg/ml (10-30)
--- NOTE | 2018-08-16 18:49 | NUR ---
Pt arrived on unit at 1700 from ICU. VSS. Pt was oriented to call light system, side rails being up, visiting hours, and bathroom. Bed locked. Pt alert and oriented x4. Will continue to monitor.
[2018-08-17 03:00] VITALS: BP 112/66
[2018-08-17 07:00] VITALS: BP 104/57
[2018-08-17 12:00] VITALS: BP 108/68
[2018-08-17 13:41] LABS: PROTHROMBIN TIME PATIENT 13.9 SEC (11.7-14.0)
[2018-08-17 13:47] LABS: ALBUMIN 3.6 g/dL (3.4-5.0); ALBUMIN/GLOBULIN RATIO 1.1 (1.0-1.7); CALCIUM 8.5 mg/dL (8.5-10.1); GFR 87.7; POTASSIUM 3.3 mmol/L (3.5-5.1); TOTAL BILIRUBIN 0.8 mg/dL (0.2-1.0); TOTAL PROTEIN 6.8 g/dL (6.4-8.2)
--- NOTE | 2018-08-17 14:20 | NUR ---
Discharge Note: EVON OVERTON AVALON Discharge instructions and discharge home medications reviewed with Patient and a copy given. All questions have been answered and understanding verbalized. The following instructions and handouts were given: Discharge Instructions Discontinued lines and drains: Peripheral IV in Right AC, Catheter tip intact. Patient discharged to [facility] via Personal Vehicle.
== END 2018-08-17 14:10 | disposition home or self-care (01) | DRG 918 ==
LOC: ER 17:10 → 1 WEST ICU 20:08 → 5 NORTH 08-16 15:40
PROVIDERS: ADMIT Internal Medicine; ATTEND Internal Medicine
DX: T39.1X2A Poisoning by 4-Aminophenol derivatives, intentional self-harm, initial encounter (principal); Z59.0 Homelessness; Z91.02 Food additives allergy status; Y92.89 Other specified places as the place of occurrence of the external cause
CPT/HCPCS: 36415; 80048; 80053; 80076; 80307; 80329; 81001; 85025; 85610; 85730; 87641; 96361; 96365; 96375; 96376; G0480; J0132; J1200; J1885; J2405; J3490; J7030; 99285-25